=== PATIENT | female | born 1955 | race Two or more races ===

== ENCOUNTER 2017-11-25 20:54 | Emergency (ER) | payer MEDICARE, OTHER ==
[~2017-11-25] VITALS: Ht 165.1 cm; Wt 78.6 kg
[2017-11-25] MEDS ORDERED: AMOX875T PO (21:38)
[2017-11-25] MEDS ORDERED: KETOROLAC 30 MG/1 ML ONE (21:41)
[2017-11-25] MEDS ORDERED: KETOROLAC 30 MG/1 ML IVPush ONE (22:00)
[2017-11-25 22:10] LABS: RAPID INFLUENZA A Negative (Negative); RAPID INFLUENZA B Negative (Negative)
[2017-11-25 22:13] LABS: ALBUMIN 3.7 g/dL (3.4-5.0); ANION GAP 10 mmol/L (5-15); BASOPHILS # (AUTO) 0.06 x10^3/uL (0-0.1); BASOPHILS % (AUTO) 1 % (0-1); CALCIUM 8.6 mg/dL (8.5-10.1); CHLORIDE 106 mmol/L (98-107); EOSINOPHILS % (AUTO) 0 % (1-7); LYMPHOCYTES # (AUTO) 0.64 x10^3/uL (1-3.4); LYMPHOCYTES % (AUTO) 5 % (22-44); MD NO; MEAN CORPUSCULAR HEMOGLOBIN 31.1 pg (27.0-34.8); MEAN CORPUSCULAR HGB CONC 33.3 g/dL (32.4-35.8); MEAN CORPUSCULAR VOLUME 93.4 fL (80-100); MEAN PLATELET VOLUME 9.9 fL (7.4-10.4); MONOCYTES # (AUTO) 0.42 x10^3/uL (0.2-0.8); MONOCYTES % (AUTO) 3 % (2-9); NEUTROPHILS # (AUTO) 11.23 x10^3/uL (1.8-6.8); NEUTROPHILS % (AUTO) 91 % (42-75); PLATELET COUNT 218 x10^3/uL (130-400); RED BLOOD COUNT 4.17 x10^6/uL (3.82-5.3); RED CELL DISTRIBUTION WIDTH 12.5 % (9.6-15.2)
[2017-11-25 22:14] LABS: CREATININE 0.73 mg/dL (0.55-1.02)
[2017-11-25 23:03] VITALS: BP 106/65
[2017-11-25] MEDS ORDERED: BICILLIN-LA 1,200,000 UNITS/2 ML IM ONE (23:30)
== END 2017-11-25 23:31 | disposition home or self-care (01) ==
LOC: ED 22:12
DX: J02.0 Streptococcal pharyngitis (principal); R50.9 Fever, unspecified; R51 Headache
CPT/HCPCS: 36415; 80048; 82040; 85025; 87400; 87880; 96372; 96374; 99284; J0561; J1885